=== PATIENT | male | born 1945 | race American Indian/Alaskan Native ===

== ENCOUNTER 2016-11-25 13:16 | Outpatient (CLI) | payer MEDICARE, OTHER ==
--- NOTE | 2016-11-25 14:49 | Mammography Report ---
BONE DEXA:11/25/16 13:16:00 CLINICAL: Postmenopausal. No comparison. TECHNIQUE: Two site bone DEXA performed on an Hologic scanner. FINDINGS: The average BMD of the lumbar spine L1-L4 is 1.513g/cm squared with a T-score of +2.9 and a Z-score of +4.0. The average BMD of the left hip is 1.279g/cm squared with a T-score of +0.6 and a Z-score of is 1.7. IMPRESSION: WHO classification: Normal with average fracture risk based on both spine and left hip measurements. RECOMMENDATION: Clinical correlation and routine screening. DEFINITIONS: BMD = Bone Mineral Density T-score = BMD related to mean peak bone mass of young adult (mean expressed in Standard Deviation) Z-score = Age matched BMD expressed in SD World Health Organization (WHO) Diagnostic Criteria Normal T-score > -1 SD Osteopenia T-score between -1 and -2.4 SD Osteoporosis T-score -2.5 SD or below NOTE: BMD is not the only risk factor for fracture. One should also consider factors such as the patient's age, risk of falling, previous osteoporotic fracture, family history of osteoporotic fractures, current smoker, and low body weight. Z-scores are not calculated if >80 years of age.
== END 2016-11-25 13:17 | disposition home or self-care (01) ==
LOC: SPVWC 13:16
PROVIDERS: ATTEND Family Medicine
DX: Z91.89 Other specified personal risk factors, not elsewhere classified (principal); Z13.820 Encounter for screening for osteoporosis
CPT/HCPCS: 77080

== ENCOUNTER 2017-11-20 08:54 | Day surgery (SDC) | payer MEDICARE, OTHER ==
[~2017-11-20 08:54] MED LIST: ANCEF/STERILE WATER 2 GM/20 ML IV NR
[2017-11-20] MEDS ORDERED: LACTATED RINGERS 1,000 ML IV SCH (11:14)
[2017-11-20] MEDS ORDERED: VERSED IV ONE (11:24)
[2017-11-20] MEDS ORDERED: DIPRIVAN 10 MG/ML IV ONE (11:42)
[2017-11-20] MEDS ORDERED: DILAUDID ONE (11:42)
[2017-11-20] MEDS ORDERED: XYLOCAINE MPF 2% ONE (11:42)
--- NOTE | 2017-11-20 11:42 | Anesthesia Consultation ---
Anesthesia Consult and Med Hx Date of service: 11/20/17 - Airway Anesthetic Teeth Evaluation: Good ROM Head & Neck: Adequate Mental/Hyoid Distance: Adequate Mallampati Class: Class III Intubation Access Assessment: Possibly Difficult - Pulmonary Exam CTA: Yes - Cardiac Exam Cardiac Exam: RRR - Pre-Operative Health Status ASA Pre-Surgery Classification: ASA3 Proposed Anesthetic Plan: General - Pulmonary Hx Smoking: Yes (STOPPED 1969'S) Hx Asthma: No Hx Respiratory Symptoms: No COPD: No Hx Sleep Apnea: Yes (Has not used CPAP recently 2/2 sinus infection) - Cardiovascular System Hx Hypertension: Yes (took atenolol this morning) Hx Heart Attack/AMI: No Hx Percutaneous Transluminal Coronary Angioplasty (PTCA): No - Central Nervous System Hx Seizures: No CVA: No Hx Psychiatric Problems: Yes (PTSD/anxiety) - Endocrine Hx Renal Disease: No Hx Insulin Dependent Diabetes: No Hx Thyroid Disease: No - Additional Comments Anesthesia Medical History Comments: No hx anesthetic complications. Currently taking PO antibiotics for sinus infection. No associted fevers, chills, respiratory symptoms.
[2017-11-20] MEDS ORDERED: DILAUDID IV PRN (11:43)
--- NOTE | 2017-11-20 11:43 | Anesthesia Day of Surgery ---
Anesthesia Day of Surgery - Day of Surgery Patient Examined: Yes Patient H&P Reviewed: Yes Patient is NPO: Yes Beta Blockers: Yes
[2017-11-20] MEDS ORDERED: ZEMURON IV ONE (12:20)
[2017-11-20] MEDS ORDERED: NACL 0.9% IR ONE (13:00)
[2017-11-20] MEDS ORDERED: DECADRON ONE (13:16)
[2017-11-20] MEDS ORDERED: ZOFRAN ONE (13:16)
--- NOTE | 2017-11-20 13:17 | Short Stay Summary ---
Short Stay Documentation Date of service: 11/20/17 - History H&P: obtained from office - Allergies and Medications Current Medications: Allergies codeine Allergy (Verified 11/09/17 17:24) Itching Home Medications Medication Instructions Recorded Confirmed Last Taken Type Aspirin [Aspir-Low] 81 mg PO DAILY 11/09/17 11/20/17 11/13/17 History Atenolol [Tenormin] 25 mg PO DAILY 11/09/17 11/20/17 11/20/17 08:00 History Citalopram [celeXA] 40 mg PO QDAY 11/09/17 11/09/17 11/19/17 History Latanoprost 0.005% [Xalatan 0.005%] 1 drop OP QPM 11/09/17 11/09/17 11/19/17 History Zolpidem [Ambien] 5 mg PO QHS PRN 11/09/17 11/09/17 11/19/17 History hydroCHLOROthiazide [HCTZ] 25 mg PO QDAY 11/09/17 11/20/17 11/20/17 08:00 History Active Medications Cefazolin Sodium (Ancef/Sterile Water 2 Gm/20 Ml) 2 gm IV PREOP NR Stop: 11/20/17 23:59 Hydromorphone HCl (Dilaudid) 0.5 mg IV Q10MIN PRN PRN Reason: Pain , Severe (7-10) Lactated Ringer's (Lactated Ringers) 1,000 mls @ 100 mls/hr IV DIRECT FER Last Admin: 11/20/17 11:35 Dose: 100 mls/hr - Brief post op/procedure progress note Date of procedure: 11/20/17 Pre-op diagnosis: interstim malfunction Post-op diagnosis: same Procedure: remove interstim Anesthesia: GETA Surgeon: DAVID RIVERA Estimated blood loss: minimal Pathology: list (interstim) Condition: stable - Hospital course Hospital course: dilaudid on chart - Disposition Condition at discharge: Stable Disposition: DC-01 TO HOME OR SELFCARE Short Stay Discharge Plan Follow up with: CLOVIS NATH MD [Primary Care Provider] - 7 Days
--- NOTE | 2017-11-20 14:15 | XRay Report ---
RIGHT HIP, ONE VIEW History: Interstimulator removal. Findings: 2 AP fluoroscopic views of the right hip are obtained during surgery. An interstimulator device was removed. There is normal articulation at the right hip. No evidence for fracture, joint pathology or osteonecrosis. Impression: Interstimulator removal. Unremarkable right hip.
--- NOTE | 2017-11-20 14:32 | Operative Report ---
PREOPERATIVE DIAGNOSIS: Malfunctioning InterStim with pain. POSTOPERATIVE DIAGNOSIS: Malfunctioning InterStim with pain. PROCEDURE: Removal of InterStim (quadripolar lead and implantable pulse generator). SURGEON: Prasanth Butler MD ANESTHESIA: General. ESTIMATED BLOOD LOSS: Minimal. FLUIDS: Crystalloid. COMPLICATIONS: No complications. INDICATIONS: This patient is a 72-year-old gentleman who has been seen in the past for inflatable penile prosthesis and InterStim in 2007. The patient actually had radical retropubic prostatectomy in October [address] Otto. He has done well; however, he has had some back pain and he is not sure his InterStim is working. He needs an MRI for his spine evaluation and they need the InterStim removed. He is not sure how well it is working and based on all those findings, we agreed to remove it. DESCRIPTION OF PROCEDURE: The patient was taken to the operative suite and placed in the supine position. After adequate general anesthesia, he was then placed in a prone position and prepped and draped in a sterile fashion. With the aid of C-arm fluoroscopy, both the lead and battery could be appreciated. The battery was at the right buttock area. Incision was made over the battery in subcutaneous tissue. Sharp dissection was taken down. It was identified. No signs of infection. It was pulled out of the incision. I tracked the lead to the sacrum. A small incision was made over the sacrum. The wire was cut at the battery and then the rest of the wire was pulled out. There was one small segment of the lead, not much bigger than one of his clips that could be appreciated from his radical prostatectomy. Copious irrigation was performed. Adequate hemostasis was achieved. Subcutaneous tissue was closed with 2-0 Vicryl in a running fashion. Skin was closed with 3-0 Vicryl in interrupted fashion. The patient tolerated the procedure well. He was extubated and taken to the recovery room. JOB# [id number] NEFTALI/EYAL
[2017-11-20 14:55] VITALS: BP 133/54
--- NOTE | 2017-11-20 20:17 | Post Anesthesia Evaluation ---
- Post Anesthesia Evaluation Patient Participated: Yes Airway Patent: Yes Stable Respiratory Function: Yes Nausea/Vomiting: No Temp > 96.8F: Yes Pain Manageable: Yes Adequeate Hydration: Yes Anesthesia Complications: No Block Receding Appropriately: Not Applicable Patient on Ventilator: No
== END 2017-11-20 08:55 | disposition home or self-care (01) ==
LOC: OR 08:54
PROVIDERS: ATTEND Urology
DX: T85.193A Other mechanical complication of implanted electronic neurostimulator, generator, initial encounter (principal); I10 Essential (primary) hypertension; G47.30 Sleep apnea, unspecified; F41.9 Anxiety disorder, unspecified; Z79.82 Long term (current) use of aspirin; Z88.5 Allergy status to narcotic agent; Z87.891 Personal history of nicotine dependence; Z79.899 Other long term (current) drug therapy; Z98.890 Other specified postprocedural states; Z85.46 Personal history of malignant neoplasm of prostate; Y83.8 Other surgical procedures as the cause of abnormal reaction of the patient, or of later complication, without mention of misadventure at the time of the procedure; Y92.89 Other specified places as the place of occurrence of the external cause
CPT/HCPCS: 36415; 64585; 64595; 73501; 84132; 88302; J0690; J1100; J1170; J2250; J2405; J2704; J7120

== ENCOUNTER 2020-09-14 08:43 | Outpatient (CLI) | payer MEDICARE, OTHER ==
--- NOTE | 2020-09-14 13:01 | Nuclear Medicine Report ---
NUCLEAR MEDICINE WHOLE BODY BONE IMAGING STUDY. HISTORY: MALIGNANT NEOPLASM OF PROSTATE COMPARISON: No prior bone scans are available for comparison. TECHNIQUE: The patient was administered 25.8 mCi of technetium 99m labeled MDP intravenously. FINDINGS: There is bilateral, relatively symmetric articular activity which is most likely degenerative given t he distribution and symmetry. No asymmetric radiotracer activity is seen within the included axial and appendicular skeleton. There is normal soft tissue activity in the kidneys and urinary bladder. IMPRESSION: No scintigraphic evidence of osseous metastatic disease. Presumed degenerative changes, as above. Signer Name: Surinder Soares MD Signed: 09/14/2020 12:57 PM Workstation Name: [id number]
== END 2020-09-14 08:44 | disposition home or self-care (01) ==
LOC: NM 08:43
PROVIDERS: ATTEND Urology
DX: C61 Malignant neoplasm of prostate (principal)
CPT/HCPCS: 78306; A9503